=== PATIENT | male | born 1980 | race Caucasian/White ===

== ENCOUNTER 2017-02-05 13:04 | Emergency (ER) | payer SELFPAY ==
[2017-02-05] MEDS ORDERED: SULFAMETHOXAZOLE/TRIMETHOPRIM 800-160 MG TABLET PO ONE (14:36)
[2017-02-05] MEDS ORDERED: CEPHALEXIN 500 MG CAPSULE PO ONE (14:36)
--- NOTE | 2017-02-05 14:41 | ER Document Report ---
ED Extremity Problem, Lower - General Chief Complaint: Leg Pain Stated Complaint: LEG PAIN Time Seen by Provider: 02/05/17 13:59 Mode of Arrival: Ambulatory Information source: Patient Notes: 37-year-old male presents to ED for complaint of rash to his right leg. He has eczema to the right knee. He states that this been there for a long time but it flared up again about 4 5 days ago. He says he scratches that it itches it and then he got a red streak up his right thigh. He said sex same thing happened about the same time last year. He was diagnosed with cellulitis and Bactrim and Keflex cleared it up. He came in he states for the same treatment if possible. TRAVEL OUTSIDE OF THE [place] IN LAST 30 DAYS: No - HPI Patient complains to provider of: Pain Location: Knee - Eczema to right knee redness to right thigh Occurred: Other - Gradually over the last 4 days Onset/Duration: Gradual Quality of pain: Achy Severity: Moderate Pain Level: 4 Recent injury: No Associated symptoms: Other - Eczema to right knee redness to right thigh Exacerbated by: Movement, Walking Relieved by: Other - Antibiotics - Related Data Allergies/Adverse Reactions: No Known Allergies Allergy (Verified 02/05/17 13:09) Past Medical History - General Information source: Patient - Social History Smoking Status: Current Every Day Smoker Cigarette use (# per day): Yes Chew tobacco use (# tins/day): No Smoking Education Provided: Yes Frequency of alcohol use: Rare Drug Abuse: None Occupation: unemployed Lives with: Family Family History: Arthritis, CAD, Hyperlipidemia, Hypertension, Malignancy Patient has suicidal ideation: No Patient has homicidal ideation: No - Past Medical History Cardiac Medical History: Reports: None Pulmonary Medical History: Reports: None EENT Medical History: Reports: None Neurological Medical History: Reports: None Endocrine Medical History: Reports: None Renal/ Medical History: Reports: None Malignancy Medical History: Reports None GI Medical History: Reports: None Musculoskeltal Medical History: Reports Hx Musculoskeletal Trauma Skin Medical History: Reports Hx Eczema Psychiatric Medical History: Reports: Hx Anxiety, Hx Bipolar Disorder, Hx Depression Traumatic Medical History: Reports: Hx Fractures - wrist Infectious Medical History: Reports: None Past Surgical History: Reports: Hx Appendectomy - Immunizations Immunizations up to date: Yes Hx Diphtheria, Pertussis, Tetanus Vaccination: Yes - 2013 Review of Systems - Review of Systems Constitutional: No symptoms reported EENT: Nose discharge, Sinus discharge Cardiovascular: No symptoms reported Respiratory: Cough Gastrointestinal: No symptoms reported Genitourinary: No symptoms reported Male Genitourinary: No symptoms reported Musculoskeletal: No symptoms reported Skin: Change in color - cellulitis, Other - eczema Hematologic/Lymphatic: No symptoms reported Neurological/Psychological: No symptoms reported -: Yes All other systems reviewed and negative Physical Exam - Vital signs Vitals: Temp Pulse Resp BP Pulse Ox 97.7 F 68 20 125/83 100 02/05/17 13:10 02/05/17 13:10 02/05/17 13:10 02/05/17 13:10 02/05/17 13:10 Interpretation: Normal - General General appearance: Appears well, Alert - HEENT Head: Normocephalic, Atraumatic Eyes: Normal Pupils: PERRL Ears: Normal External canal: Normal Tympanic membrane: Normal Sinus: Normal Nasal: Purulent discharge, Swelling Mouth/Lips: Normal Mucous membranes: Normal Pharynx: Post nasal drainage Neck: Normal - Respiratory Respiratory status: No respiratory distress Chest status: Nontender Breath sounds: Nonproductive cough Chest palpation: Normal - Cardiovascular Rhythm: Regular Heart sounds: Normal auscultation Murmur: No - Abdominal Inspection: Normal Distension: No distension Bowel sounds: Normal Tenderness: Nontender Organomegaly: No organomegaly - Back Back: Normal, Nontender - Extremities General upper extremity: Normal inspection, Nontender, Normal color, Normal ROM , Normal temperature General lower extremity: Normal ROM, Normal temperature, Normal weight bearing. No: Anjali's sign Thigh: Tender - cellulitis Knee: Other - eczema to right knee with cellulitis to right thigh - Neurological Neuro grossly intact: Yes Cognition: Normal Orientation: AAOx4 Henderson Coma Scale Eye Opening: Spontaneous Henderson Coma Scale Verbal: Oriented Henderson Coma Scale Motor: Obeys Commands Yash Coma Scale Total: 15 Speech: Normal Motor strength normal: LUE, RUE, LLE, RLE Sensory: Normal - Psychological Associated symptoms: Normal affect, Normal mood - Skin Skin Temperature: Warm Skin Moisture: Dry Skin Color: Normal Location of irregularity: Extremities - eczema to right knee and cellulitis to right thigh Character of irregularity: Patchy, Erythematous Irregularity with: Tenderness, Scaling, Rough texture-sand paper Course - Re-evaluation Re-evalutation: 02/05/17 14:54 Patient was given instructions for care of his upper respiratory infections Tylenol Motrin [id number] antihistamines and decongestants. He was also given instructions for care of his eczema to his right knee include echo for [id number] steroid creams and ibuprofen. He was treated with Keflex and Septra for the cellulitis that he is developed from scratching and messing with his eczema causing a small infection to his thigh. Patient was instructed to return to the ED for any increase in redness swelling or tenderness to his right thigh. - Vital Signs Vital signs: Temp Pulse Resp BP Pulse Ox 97.4 F 77 18 141/90 H 97 02/05/17 15:07 02/05/17 15:07 02/05/17 15:07 02/05/17 15:07 02/05/17 15:07 Discharge - Discharge Clinical Impression: Cellulitis of right thigh Eczema Qualifiers: Eczema type: unspecified Qualified Code(s): L30.9 - Dermatitis, unspecified Condition: Stable Disposition: HOME, SELF-CARE Instructions: Family Physicians / Practices Additional Instructions: Atopic Dematitis (Eczema) You have atopic dermatitis, commonly called eczema. This is a chronic allergic skin condition. It often occurs in families with asthma and hay fever. The skin develops patches of redness, itching and scaling. Eczema often affects the back of the neck, back of the legs, and front of the arms. In children it affects the back of the knees, front of the elbows, and the cheeks. Itching is the main symptom. Eczema can be triggered by dryness, heat, sweating, and detergents or soap. Scratching makes the rash worse. Food or skin allergy can cause eczema. Emotional stress may also be a factor. Symptoms may get better or worse spontaneously. Generally, the treatment consists of: (1) avoid hot-water baths, (2) avoid using soap on your skin, (3) apply a cortisone cream as needed, and (4) use antihistamines for itching. For severe episodes, oral cortisone medication may be required. Call the doctor if you get worse despite treatment, or if signs of infection occur -- such as spreading redness, red streaks, swollen glands, swelling, or fever. CELLULITIS: You have an infection of your skin and underlying soft tissues called cellulitis. This is due to bacteria, which can enter through any break in the skin, or even through an irritated hair follicle. Untreated, cellulitis will usually worsen. Antibiotics are required. Usually, warm packs or warm soaks, and elevation of the infected area are recommended. You should start getting better within 24 to 36 hours. Most infections respond quickly to the right medication. Follow-up care is important, however, to check for abscess (boil) formation, unsuspected foreign body, or resistant infection. If you develop fever, chills, or if the area of infection is becoming rapidly more swollen or painful, call the doctor at once. UPPER RESPIRATORY ILLNESS: You have a viral infection of the respiratory passages -- a "cold." This common infection causes nasal congestion, drainage, and often sore throat and cough. It is highly contagious. The disease usually lasts about 10 to 14 days. There is no "cure" for the viral infection -- it must run its course. If there is a complication, such as bacterial infection in the nose, sinuses, middle ear, or bronchial tubes, antibiotics may be required. The antibiotics won't affect the virus. Drink plenty of fluids. A humidifier may help. An expectorant medication or decongestant may make you more comfortable. Use acetaminophen or ibuprofen for fever or aches. See the doctor if fever persists over two days, if there is any significant worsening of your symptoms, or if you simply fail to improve as expected. DECONGESTANT MEDICATION: A decongestant medicine has been prescribed. Often this medicine is combined in the same tablet with an antihistamine or expectorant. This type of medicine is helpful in treating a bad cold or sinus condition, as well as in treatment of the nasal congestion of hay fever. It is not of much benefit for lung infections. Decongestant medicines are related to stimulants. They can cause an increase in blood pressure and heart rate. Persons with heart disease and high blood pressure should not take decongestants without discussing this with the physician. If you develop palpitations, chest pain, headache, or tremors, stop the medicine and consult your physician. COUGH-SUPPRESSANT & EXPECTORANT MEDICATION: You are to use a cough medication as needed for relief of symptoms. This medicine is a combination of an expectorant (to make the mucous thinner and more easily "coughed up") and a cough suppressant (to reduce the frequency of coughing). The cough-suppressant medicine is related to narcotics. You may experience mild nausea and sleepiness. Some patients who are very sensitive to narcotics may have stomach pain from this medicine. Taking the medicine with food reduces these side effects. Do not drive or work with machinery until you know how this medicine affects you. The expectorant should have no side effects. Iodine-containing expectorants (such as organidin) should not be taken by persons with active thyroid disease unless approved by your doctor. Call the doctor if you develop shortness of breath, hives, rash, itching, lightheadedness, or severe nausea and vomiting. USE OF ACETAMINOPHEN (Tylenol): Acetaminophen may be taken for pain relief or fever control. It's much safer than aspirin, offering a wider range of "safe" dosages. It is safe during . Some brand names are Tylenol, Panadol, Datril, Anacin 3, Tempra, and Liquiprin. Acetaminophen can be repeated every four hours. The following are maximum recommended dosages: >89 pounds or adults 650 mg to 900 mg Acetaminophen can be repeated every four hours. Maximum dose not to exceed 4000 mg a day. SMOKING: If you smoke, you should stop smoking. The tar and chemicals in cigarette smoke are harmful. Smoking has been shown to cause: emphysema chronic bronchitis lung cancer mouth and throat cancer stomach and pancreas cancer premature aging defects In addition, smoking increases ear and lung infections in children of smokers. TRIMETHOPRIM-SULFA: You have been given a prescription for trimethoprim-sulfa (TMS, Septra, Bactrim). This is a combination antibiotic of the sulfa class, often used for urinary tract infections, middle ear infections, bronchitis, shigella intestinal infection, and Pneumocystis pneumonia. TMS is usually well-tolerated. Occasional side effects include nausea and decreased appetite. Septra is not recommended for infants less than two months of age. Do not take this medication if you have experienced severe side effects or allergy to sulfa medicine. You should stop this medicine at once and contact your physician if you develop any rash, joint pain, shortness of breath, bruising, or jaundice ( yellow color in the skin), or if you develop any other new or unusual symptoms. Cephalexin The antibiotic you've been prescribed is a member of the cephalosporin class. This type of antibiotic covers a wide variety of infections, including those of the skin, lungs, and urinary tract. It's useful for staph infections. This antibiotic is slightly similar to the penicillin family. In rare cases , a person who is allergic to penicillin will also be allergic to this medication. If you have had a severe allergic reaction to penicillin, and have not taken this antibiotic since that time, notify your doctor. Antibiotics which cover many germs ("broad spectrum" antibiotics) are more likely to cause diarrhea or "yeast" infections. Women prone to vaginal yeast problems may suffer an attack after taking this antibiotic. In infants, oral thrush (white spots "stuck" on the cheek) or yeast diaper rash may result. See your doctor if these problems occur. Call at once if you develop itching, hives , shortness of breath, or lightheadedness. FOLLOW-UP CARE: If you have been referred to a physician for follow-up care, call the physician s office for an appointment as you were instructed or within the next two days. If you experience worsening or a significant change in your symptoms, notify the physician immediately or return to the Emergency Department at any time for re-evaluation. Prescriptions: Cephalexin Monohydrate [Keflex 500 mg Capsule] 500 mg PO Q6H 5 Days capsule Sulfamethoxazole/Trimethoprim [Septra-Ds 800-160 mg Tablet] 1 tab PO BID #14 tablet
[2017-02-05 15:08] VITALS: BP 141/90
== END 2017-02-05 15:08 | disposition home or self-care (01) ==
LOC: ER 13:04
DX: L03.115 Cellulitis of right lower limb (principal); L30.9 Dermatitis, unspecified; M79.604 Pain in right leg; F17.210 Nicotine dependence, cigarettes, uncomplicated
CPT/HCPCS: 99283

== ENCOUNTER 2017-08-10 06:47 | Observation (INO) | payer SELFPAY ==
[2017-08-10] MEDS ORDERED: MORPHINE SULFATE 10 MG/ML INJ IV ONE (07:16)
[2017-08-10] MEDS ORDERED: ONDANSETRON HCL INJ/PF 4 MG/2 ML SDV IV ONE (07:16)
--- NOTE | 2017-08-10 07:26 | ER Document Report ---
ED GI/ - General Chief Complaint: Abdominal Pain Stated Complaint: ABDOMINAL PAIN Time Seen by Provider: 08/10/17 07:07 Mode of Arrival: Ambulatory Information source: Patient TRAVEL OUTSIDE OF THE [place] IN LAST 30 DAYS: No - HPI Patient complains to provider of: Abdominal pain Notes: 08/10/17 07:19 Patient is here with complaints of abdominal pain. He states that around midnight he developed some epigastric/right upper quadrant abdominal pain. Occasionally the pain would radiate up into the right side of his chest. He denies any chest pain currently. At this time is complaining of pain in the epigastric and right upper quadrant. He denies any fevers. He denies any shortness of breath. He does have nausea and has vomited approximately 6 times since the start of his pain. He denies any diarrhea. He denies any rash or injury. He has had prior appendectomy, but still has his gallbladder. He denies any history of pancreatitis. He denies alcohol use. He denies any dysuria or hematuria. No rash. No numbness, tingling, weakness. He is a smoker, denies drug use. Has a history of high cholesterol. No diabetes, high cholesterol, heart disease at a young age, personal heart disease. He denies any recent long trips or surgeries, leg pain or leg swelling, history of DVT or PE, cancer, hemoptysis. Nothing in particular makes his pain better or worse. The pain has been constant, but the intensity has waxed and waned. - Related Data Allergies/Adverse Reactions: No Known Allergies Allergy (Verified 02/05/17 13:09) Past Medical History - Social History Smoking Status: Current Every Day Smoker Family History: Arthritis, CAD, Hyperlipidemia, Hypertension, Malignancy Renal/ Medical History: Denies: Hx Peritoneal Dialysis Musculoskeltal Medical History: Reports Hx Musculoskeletal Trauma Skin Medical History: Reports Hx Eczema, Denies Hx MRSA Psychiatric Medical History: Reports: Hx Anxiety, Hx Bipolar Disorder, Hx Depression Traumatic Medical History: Reports: Hx Fractures - wrist Past Surgical History: Reports: Hx Appendectomy - Immunizations Immunizations up to date: Yes Hx Diphtheria, Pertussis, Tetanus Vaccination: Yes - 2013 Review of Systems - Review of Systems -: Yes All other systems reviewed and negative Physical Exam - Vital signs Vitals: Temp Pulse Resp BP Pulse Ox 98.6 F 63 16 119/86 H 96 08/10/17 06:57 08/10/17 06:57 08/10/17 06:57 08/10/17 06:57 08/10/17 06:57 - Notes Notes: GENERAL: alert, cooperative, nontoxic, no distress. HEAD: normocephalic, atraumatic EYES: conjunctiva pink without discharge, no external redness or swelling. EARS: no external swelling, no external redness NOSE: atraumatic, no external swelling MOUTH/THROAT: mucous membranes moist and pink, posterior pharynx without erythema, swelling, exudate. No trismus or drooling. NECK: soft, supple, full range of motion, no meningismus. CHEST: no distress, lungs clear and equal throughout. No wheezing, rales, rhonchi. CARDIAC: regular rate and rhythm, no murmur, normal capillary refill, normal pulses. No peripheral edema noted. ABDOMEN: Soft, tenderness to palpation of epigastric and right upper quadrant. Mild voluntary guarding. Positive Smiley sign. No left-sided or lower abdominal tenderness on exam. No masses. Obese abdomen. No pulsatile mass. BACK: full range of motion, no CVA tenderness. EXTREMITIES: full range of motion of all extremities. No redness, no swelling. NEURO: alert and oriented x 3, no focal deficits, full range of motion of all extremities. PYSCH: appropriate mood, affect. Patient is cooperative. SKIN: pink, warm, dry, no rash. Course - Re-evaluation Re-evalutation: 08/10/17 07:26 PERC RULE: 0 criteria No need for further workup, as <2% chance of PE. If no criteria are positive and clinicians pre-test probability is <15%, PERC Rule criteria are satisfied. WELL CRITERIA FOR PE: 0.0 points Low risk group: 1.3% chance of PE in an ED population. Another study assigned scores 4 as PE Unlikely and had a 3% incidence of PE. HEART SCORE: 1 points Low Score (0-3 points) Risk of MACE of 0.9-1.7%. 08/10/17 09:56 Labs are unremarkable. Chest x-ray is negative. Ultrasound shows multiple gallstones with gallbladder wall thickening. Common bile duct is normal. I discussed the case with the surgeon salon receptionist Dr. Amaro, he will come the emergency department to evaluate the patient. 08/10/17 11:47 Patient is here with complaints of right upper quadrant pain. He was tender on exam. Lab work is all unremarkable. Ultrasound shows multiple gallstones with gallbladder wall thickening. The patient was seen and evaluated by surgery and will be admitted to Dr. Amaro's service for cholecystectomy. Patient's pain seemed to be more abdominal than chest. He has no PE risk factors and is PERC rule negative as well as Wells criteria negative for PE. Patient has a heart score of 1, his pain seems very atypical for ACS. EKG, chest x-ray, troponin are negative. The patient's had constant pain since last night. His gallbladder is most likely source of the pain he has been experiencing. - Vital Signs Vital signs: Temp Pulse Resp BP Pulse Ox 98.6 F 63 11 L 116/82 98 08/10/17 06:57 08/10/17 06:57 08/10/17 11:01 08/10/17 11:01 08/10/17 11:01 - Laboratory Result Diagrams: 08/10/17 07:30 08/10/17 07:30 Laboratory results interpreted by me: 08/10/17 07:30 Sodium 146.5 H Chloride 108 H - EKG Interpretation by Or EKG shows normal: Sinus rhythm, [place], Intervals, QRS Complexes, ST-T Waves Rate: Normal Additional EKG results interpreted by ny: 08/10/17 07:23 Voltage change in V2 only compared to prior EKG. No other obvious acute abnormalities or ischemic changes. Discharge - Discharge Clinical Impression: Cholecystitis, Gall stones Condition: Stable Disposition: ADMITTED OBSERVATION Admitting Provider: Surgicalist - dr amaro Unit Admitted: Surgical Floor Referrals: SHANTHI DE LEON MD [Primary Care Provider] - Follow up as needed
[2017-08-10] MEDS ORDERED: NEOSTIGMINE METHYLSULFATE 10 MG/10 ML VIAL ONE (07:39)
[2017-08-10] MEDS ORDERED: SUCCINYLCHOLINE CHLORIDE INJ 200 MG/10 ML VIAL ONE (07:39)
[2017-08-10] MEDS ORDERED: VECURONIUM BROMIDE INJ 10 MG VIAL IV ONE (07:39)
[2017-08-10] MEDS ORDERED: GLYCOPYRROLATE INJ 0.4 MG/2 ML VIAL ONE (07:39)
[2017-08-10 07:50] LABS: ABSOLUTE EOSINOPHILS # (AUTO) 0.2 10^3/uL (0.0-0.6); ABSOLUTE LYMPHOCYTES (AUTO) 1.6 10^3/uL (0.5-4.7); ABSOLUTE MONOCYTES (AUTO) 0.6 10^3/uL (0.1-1.4); ABSOLUTE NEUT (AUTO) 4.1 10^3/uL (1.7-8.2); BASOPHILS % (AUTO) 0.6 % (0-2); EOSINOPHILS % (AUTO) 3.7 % (0-6); HEMATOCRIT 45.1 % (37.9-51.0); HEMOGLOBIN 15.7 g/dL (13.5-17.0); LYMPHOCYTES % (AUTO) 24.8 % (13-45); MEAN CORPUSCULAR HGB CONC 34.8 g/dL (32.0-36.0); MEAN CORPUSCULAR VOLUME 89 fl (80-97); MONOCYTES % (AUTO) 8.5 % (3-13); PLATELET COUNT 211 10^3/uL (150-450); RED BLOOD COUNT 5.06 10^6/uL (4.35-5.55); RED CELL DISTRIBUTION WIDTH 13.4 % (11.5-14.0); SEGMENTED NEUTROPHILS % (AUTO) 62.4 % (42-78); TOTAL CELLS COUNTED % (AUTO) 100 %; WHITE BLOOD COUNT 6.5 10^3/uL (4.0-10.5)
--- NOTE | 2017-08-10 07:53 | EKG REPORT ---
SEVERITY:- NORMAL ECG - SINUS RHYTHM : Confirmed by: Jose Taveras MD 10-Aug-2017 07:52:50
[2017-08-10 07:55] LABS: AMORPHOUS SEDIMENT,URINE TRACE /HPF; APPEARANCE,URINE TURBID; BILIRUBIN,URINE NEGATIVE (NEGATIVE); GLUCOSE, URINE NEGATIVE (NEGATIVE); KETONES,URINE NEGATIVE (NEGATIVE); LEUKOCYTE ESTERASE,URINE NEGATIVE (NEGATIVE); NITRITE,URINE NEGATIVE (NEGATIVE); PROTEIN,URINE NEGATIVE (NEGATIVE); URINE SPECIFIC GRAVITY 1.024; UROBILINOGEN,URINE NEGATIVE mg/dL (<2.0)
[2017-08-10 08:01] LABS: COLOR,URINE YELLOW
[2017-08-10 08:07] LABS: ALANINE AMINOTRANSFERASE 35 U/L (21-72); ALBUMIN 4.4 g/dL (3.5-5.0); ALKALINE PHOSPHATASE 71 U/L (38-126); ANION GAP 13 (5-19); ASPARTATE AMINO TRANSFERASE 23 U/L (17-59); BILIRUBIN,DIRECT 0.3 mg/dL (0.0-0.4); BILIRUBIN,TOTAL 0.3 mg/dL (0.2-1.3); BLOOD UREA NITROGEN 10 mg/dL (7-20); CALCIUM 9.9 mg/dL (8.4-10.2); CARBON DIOXIDE 26 mmol/L (22-30); CHLORIDE 108 mmol/L (98-107); GLUCOSE 97 mg/dL (75-110); LIPASE 77.5 U/L (23-300); POTASSIUM 4.3 mmol/L (3.6-5.0); SODIUM 146.5 mmol/L (137-145); TOTAL PROTEIN 7.2 g/dL (6.3-8.2)
[2017-08-10] MEDS ORDERED: HYDROMORPHONE HCL INJ/PF 2 MG/ML AMPULE IV ONE ×2 (08:10→12:30)
--- NOTE | 2017-08-10 08:15 | RADIOLOGY REPORT (SQ) ---
EXAM DESCRIPTION: CHEST 2 VIEWS COMPLETED DATE/TIME: 08/10/2017 7:45 am REASON FOR STUDY: ruq abdo/cp COMPARISON: None. EXAM PARAMETERS: NUMBER OF VIEWS: two views TECHNIQUE: Digital Frontal and Lateral radiographic views of the chest acquired. RADIATION DOSE: NA LIMITATIONS: none FINDINGS: LUNGS AND PLEURA: No opacities, masses or pneumothorax. No pleural effusion. MEDIASTINUM AND HILAR STRUCTURES: No masses or contour abnormalities. HEART AND VASCULAR STRUCTURES: Heart normal size. No evidence for failure. BONES: No acute findings. HARDWARE: None in the chest. OTHER: No other significant finding. IMPRESSION: NO ACUTE RADIOGRAPHIC FINDING IN THE CHEST. TECHNICAL DOCUMENTATION: JOB ID: [id number] [employer]- All Rights Reserved Reading location - IP/workstation name: [email or web address]
--- NOTE | 2017-08-10 09:22 | RADIOLOGY REPORT (SQ) ---
EXAM DESCRIPTION: U/S ABDOMEN LIMITED W/O DOP COMPLETED DATE/TIME: 08/10/2017 9:12 am REASON FOR STUDY: ruq abdo/cp COMPARISON: None. TECHNIQUE: Dynamic and static grayscale images acquired of the abdomen and recorded on PACS. Additio nal selected color Doppler and spectral images recorded. LIMITATIONS: None. FINDINGS: PANCREAS: The pancreas was not visualized due to overlying bowel gas. LIVER: Fatty liver. The liver measures 18.7 cm in length, hepatomegaly. LIVER VASCULATURE: Normal directional flow of the main portal vein and hepatic veins. GALLBLADDER: Gallstones. The gallbladder wall measures 4.0 mm, diffuse gallbladder wall thickening. No pericholecystic fluid. ULTRASOUND-DETECTED DIA'S SIGN: Negative. INTRAHEPATIC DUCTS AND COMMON DUCT: CBD measures 5.0 mm in diameter, normal. The intrahepatic ducts normal caliber. No filling defects. INFERIOR VENA CAVA: Normal flow. AORTA: No aneurysm. RIGHT KIDNEY: The right kidney measures 11.8 cm in length, normal size. Normal echogenicity. No jimmy d or suspicious masses. No hydronephrosis. No calcifications. PERITONEAL AND RIGHT PLEURAL SPACE: No ascites or effusions. OTHER: No other significant findings. IMPRESSION: 1 Gallstones. Diffuse gallbladder wall thickening. 2. No evidence of biliary obstruction. 3 Fatty liver. Hepatomegaly. 4 The pancreas was not visualized due to overlying bowel gas. TECHNICAL DOCUMENTATION: JOB ID: [id number] [employer]- All Rights Reserved Reading location - IP/workstation name: [email or web address]
--- NOTE | 2017-08-10 11:00 | PDOC H&P ---
History of Present Illness Admission Date/PCP: SHANTHI DE LEON MD Patient complains of: Abdominal pain History of Present Illness: ALEXANDREA CHAND is a 37 year old male presenting with several week history of intermittent right upper quadrant abdominal pain, usually associated with food. Patient has had associated nausea and vomiting but no fevers or chills and no jaundice. Patient had a particularly bad episode of this pain last night that persisted and he subsequently came in to the emergency room. His only prior past medical history is gastroesophageal reflux disease and a laparoscopic appendectomy in the remote past. Past Medical History Cardiac Medical History: Reports: Hyperlipidema GI Medical History: Reports: Gastroesophageal Reflux Disease Skin Medical History: Reports: Eczema Psychiatric Medical History: Reports: Bipolar Disorder, Depression Past Surgical History Past Surgical History: Reports: Appendectomy Social History Smoking Status: Current Every Day Smoker Frequency of Alcohol Use: Rare Family History Family History: Arthritis, CAD, Hyperlipidemia, Hypertension, Malignancy Parental Family History Reviewed: No Children Family History Reviewed: No Sibling(s) Family History Reviewed.: No Medication/Allergy Home Medications: Cephalexin Monohydrate [Keflex 500 mg Capsule] 500 mg PO Q6H 5 Days capsule Sulfamethoxazole/Trimethoprim [Septra-Ds 800-160 mg Tablet] 1 tab PO BID #14 tablet 02/05/17 Allergies/Adverse Reactions: No Known Allergies Allergy (Verified 02/05/17 13:09) Physical Exam Vital Signs: Temp Pulse Resp BP Pulse Ox 98.6 F 63 24 H 128/80 H 96 08/10/17 06:57 08/10/17 06:57 08/10/17 08:11 08/10/17 08:11 08/10/17 08:11 Intake & Output 08/09/17 08/10/17 08/11/17 06:59 06:59 06:59 Weight 129.727 kg General appearance: PRESENT: no acute distress, cooperative Eye exam: PRESENT: conjunctiva pink Neck exam: PRESENT: other - Supple with no tenderness. Respiratory exam: PRESENT: clear to auscultation yuri Cardiovascular exam: PRESENT: RRR GI/Abdominal exam: PRESENT: other - Soft, obese, minimal right upper quadrant abdominal tenderness. No peritoneal signs Extremities exam: PRESENT: other - No swelling and no tenderness Neurological exam: PRESENT: alert, awake Psychiatric exam: PRESENT: appropriate affect Skin exam: PRESENT: warm Results Laboratory Results: 08/10/17 07:30 08/10/17 07:30 08/10/17 08/10/17 08/10/17 07:30 07:30 07:30 WBC 6.5 RBC 5.06 Hgb 15.7 Hct 45.1 MCV 89 MCH 31.0 MCHC 34.8 RDW 13.4 Plt Count 211 Seg Neutrophils % 62.4 Lymphocytes % 24.8 Monocytes % 8.5 Eosinophils % 3.7 Basophils % 0.6 Absolute Neutrophils 4.1 Absolute Lymphocytes 1.6 Absolute Monocytes 0.6 Absolute Eosinophils 0.2 Absolute Basophils 0.0 Sodium 146.5 H Potassium 4.3 Chloride 108 H Carbon Dioxide 26 Anion Gap 13 BUN 10 Creatinine 0.73 Est GFR ( Amer) > 60 Est GFR (Non-Af Amer) > 60 Glucose 97 Calcium 9.9 Total Bilirubin 0.3 AST 23 ALT 35 Alkaline Phosphatase 71 Total Protein 7.2 Albumin 4.4 Lipase 77.5 Urine Color YELLOW Urine Appearance TURBID Urine pH 8.0 Ur Specific Wheeler 1.024 Urine Protein NEGATIVE Urine Glucose (UA) NEGATIVE Urine Ketones NEGATIVE Urine Blood NEGATIVE Urine Nitrite NEGATIVE Ur Leukocyte Esterase NEGATIVE Urine WBC (Auto) 1 08/10/17 07:30 Troponin I < 0.012 Impressions: Abdomen Ultrasound 08/10/17 07:16 IMPRESSION: 1 Gallstones. Diffuse gallbladder wall thickening. 2. No evidence of biliary obstruction. 3 Fatty liver. Hepatomegaly. 4 The pancreas was not visualized due to overlying bowel gas. Chest X-Ray 08/10/17 07:16 IMPRESSION: NO ACUTE RADIOGRAPHIC FINDING IN THE CHEST. Assessment & Plan - Diagnosis (1) Acute cholecystitis due to biliary calculus Is this a current diagnosis for this admission?: Yes Plan: Recommend laparoscopic cholecystectomy. I have discussed with the patient the risk and benefits of the surgery including risk of bile duct injury, intestinal injury, bleeding, infection, postcholecystectomy diarrhea, and possibility of conversion to an open procedure. Patient's body habitus, enlarged liver and gallbladder wall thickening will make the procedure technically more difficult. Patient is reluctant to undergo surgery despite my recommendation. He will consider and will decide. In the meantime we will plan to admit the patient place him on IV antibiotics. We will keep him n.p.o.
[2017-08-10] MEDS ORDERED: NICOTINE 21 MG/24 HR PATCH.TD24 TD ONE (11:49)
[2017-08-10] MEDS ORDERED: AMPICILLIN SODIUM/SULBACTAM NA 3 GM in NORMAL SALINE 100 ML IV ONE (13:00)
[2017-08-10] MEDS: DEXTROSE 5%-1/2 NORMAL SALINE 1,000 ML IV PRN ×2 (13:05→18:36)
[2017-08-10] MEDS ORDERED: BUPIVACAINE HCL 0.25 % INJ/PF (2.5 MG/1 ML) 30 ML VIAL ONE (14:51)
[2017-08-10] MEDS ORDERED: LIDOCAINE 2% INJ-PF (20 MG/ML) 10 ML AMPUL ONE (14:57)
[2017-08-10] MEDS ORDERED: FENTANYL CITRATE INJ/PF 100 MCG/2 ML AMPUL ONE ×2 (14:57→14:58)
[2017-08-10] MEDS ORDERED: ONDANSETRON HCL INJ/PF 4 MG/2 ML SDV ONE (14:58)
[2017-08-10] MEDS ORDERED: MIDAZOLAM 2 MG/2 ML INJ ONE (14:58)
[2017-08-10] MEDS ORDERED: DEXAMETHASONE SOD PHOSPHATE INJ 4 MG/1 ML VIAL ONE (14:58)
[2017-08-10] MEDS ORDERED: PROPOFOL INJ 200 MG/20 ML VIAL IV ONE (14:59)
[2017-08-10] MEDS ORDERED: ACETAMINOPHEN 100 ML IV ONE ×2 (14:59)
[2017-08-10] MEDS ORDERED: DIPHENHYDRAMINE HCL 50 MG/ML VIAL IV PRN (16:37)
[2017-08-10] MEDS ORDERED: ONDANSETRON HCL INJ/PF 4 MG/2 ML SDV IV PRN ×2 (16:37→17:03)
[2017-08-10] MEDS ORDERED: MORPHINE SULFATE 10 MG/ML INJ IV PRN ×2 (16:37→17:03)
[2017-08-10] MEDS ORDERED: MEPERIDINE HCL/PF INJ 25 MG/1 ML DISP.SYRIN IV PRN (16:37)
[2017-08-10] MEDS ORDERED: FENTANYL CITRATE INJ/PF 100 MCG/2 ML AMPUL IV PRN ×3 (16:37)
[2017-08-10] MEDS ORDERED: PROMETHAZINE HCL INJ 25 MG/1 ML VIAL IV PRN ×2 (16:37)
--- NOTE | 2017-08-10 17:03 | Operative Report ---
Operative Report DATE OF SURGERY: 08/10/17 PREOPERATIVE DIAGNOSIS: Acute cholecystitis POSTOPERATIVE DIAGNOSIS: Acute cholecystitis OPERATION: Laparoscopic cholecystectomy SURGEON: SONIA CAROLINA ANESTHESIA: GA TISSUE REMOVED OR ALTERED: gAll bladder COMPLICATIONS: None ESTIMATED BLOOD LOSS: Minimal INTRAOPERATIVE FINDINGS: Fat encased gallbladder with thickened gallbladder wall with edema and gallstones PROCEDURE: Informed consent was obtained. Patient was brought to the operating room placed operating table in supine position. After satisfactory induction of general anesthesia, patient's abdomen was prepped and draped in usual sterile fashion. A supraumbilical midline incision was made and dissection carried down to the fascia the peritoneal cavity entered without difficulty. Thompson trocar was inserted. Pneumoperitoneum produced good patient toleration. 5 mm trocar was placed in the subxiphoid location.Two 5 mm trochars were placed in the right subcostal location. The liver appeared slightly enlarged but otherwise appeared normal. The gallbladder was grasped and retracted cephalad over the dome of the liver. The gallbladder was fat encased and the wall was thickened and edematous. The infundibulum of the gallbladder was grasped retracted laterally and inferiorly thus exposing calot's triangle. The cystic duct gallbladder junction was clearly identified and the cystic duct was clipped and divided. There was some lymphatic tissue overlying the cystic artery which was clipped and divided prior to clipping and dividing the cystic artery. The gallbladder was taken off the gallbladder bed using the hook electrocautery technique. The gallbladder was removed with an Endobag through the Thompson trocar site fascial defect. Hemostasis appeared excellent. The operative field was lightly irrigated and irrigant aspirated out. All trochars were removed under the direct vision a laparoscope to ensure hemostasis. The Thompson trocar site fascial defect was closed with interrupted Vicryl sutures. All skin incisions were closed with subcuticular interrupted Monocryl sutures. Marcaine was injected at the port sites. Patient tolerated procedure well no apparent complications and was taken to the recovery area in stable condition.
[2017-08-10] MEDS: PROMETHAZINE HCL INJ 25 MG/1 ML VIAL ONE ×2 (17:09→17:30)
[2017-08-10] MEDS: FENTANYL CITRATE INJ/PF 100 MCG/2 ML AMPUL ONE ×2 (17:10→17:15)
[2017-08-10] MEDS ORDERED: MORPHINE SULFATE 10 MG/ML INJ ONE (18:20)
[2017-08-10] MEDS: AMPICILLIN SODIUM/SULBACTAM NA 3 GM in NORMAL SALINE 100 ML IV SCH ×2 (18:51→23:42)
[2017-08-10] MEDS: KETOROLAC TROMETHAMINE INJ/PF 30 MG/1 ML SDV IV PRN (22:01)
[2017-08-11] MEDS: AMPICILLIN SODIUM/SULBACTAM NA 3 GM in NORMAL SALINE 100 ML IV SCH (05:56)
[2017-08-11] MEDS: DEXTROSE 5%-1/2 NORMAL SALINE 1,000 ML IV PRN (05:56)
--- NOTE | 2017-08-11 10:14 | PDOC PROGRESS REPORT ---
Subjective Progress Note for:: 08/11/17 Subjective:: Feels much better. Preoperative abdominal pain is resolved. Tolerating liquid diet. Reason For Visit: ACUTE CHOLECYSTITIS Physical Exam Vital Signs: Temp Pulse Resp BP Pulse Ox 98.3 F 78 22 H 129/79 H 95 08/11/17 07:58 08/11/17 07:58 08/11/17 07:58 08/11/17 07:58 08/11/17 07:58 Intake & Output 08/10/17 08/11/17 08/12/17 06:59 06:59 06:59 Intake Total 1150 Output Total 1330 Balance -180 Weight 117 kg General appearance: PRESENT: no acute distress, cooperative Respiratory exam: PRESENT: clear to auscultation yuri Cardiovascular exam: PRESENT: RRR GI/Abdominal exam: PRESENT: other - Soft, nondistended, minimal tenderness. Wound with no erythema. Extremities exam: PRESENT: other - No swelling and no tenderness Results Impressions: Abdomen Ultrasound 08/10/17 07:16 IMPRESSION: 1 Gallstones. Diffuse gallbladder wall thickening. 2. No evidence of biliary obstruction. 3 Fatty liver. Hepatomegaly. 4 The pancreas was not visualized due to overlying bowel gas. Chest X-Ray 08/10/17 07:16 IMPRESSION: NO ACUTE RADIOGRAPHIC FINDING IN THE CHEST. Assessment & Plan - Diagnosis (1) Acute cholecystitis due to biliary calculus Is this a current diagnosis for this admission?: Yes Plan: Status post laparoscopic cholecystectomy. Patient looks good. Will discharge patient home.
--- NOTE | 2017-08-11 10:35 | DISCHARGE SUMMARY E ---
Discharge Summary NAME: ALEXANDREA CHAND : 1980 AGE: 37Y ADMITTED: 08/10/2017 DISCHARGED: 08/11/2017 DISCHARGE DIAGNOSIS: ACUTE CHOLECYSTITIS WITH CHOLELITHIASIS. PROCEDURE PERFORMED: Laparoscopic cholecystectomy performed by Dr. Sarah Carolina on 08/10/2017. HOSPITAL COURSE: Patient underwent the above-mentioned surgery. He did well postoperatively. He was feeling much better and was tolerating a liquid diet well at the time of discharge. The patient was finally discharged to home in good condition. He will follow with [facility] in 2 weeks. He is encouraged to stay active at home but avoid strenuous activity. He may return to work in 1 week. He may shower tomorrow. He may resume a regular diet but avoid greasy foods for a couple of weeks. DISCHARGE MEDICATIONS: Vicodin 1 p.o. every 4 hours p.r.n. pain. DICTATING PHYSICIAN: SARAH CAROLINA M.D. [id number] PHY#: [id number] ID: [id number] JOB#: [id number] ACCT: [id number] cc:SARAH CAROLINA M.D. >
[2017-08-11 10:54] VITALS: BP 113/77
[2017-08-11] MEDS: KETOROLAC TROMETHAMINE INJ/PF 30 MG/1 ML SDV IV PRN (11:17)
== END 2017-08-11 11:45 | disposition home or self-care (01) ==
LOC: ER 06:47 → EH 11:42 → 2N 18:09
PROVIDERS: ADMIT Surgery; ATTEND Surgery
PROC: 0FT44ZZ Resection of Gallbladder, Percutaneous Endoscopic Approach (ICD-10-PCS; principal; 2017-08-10 15:30)
DX: K80.10 Calculus of gallbladder with chronic cholecystitis without obstruction (principal); F17.200 Nicotine dependence, unspecified, uncomplicated; Z90.49 Acquired absence of other specified parts of digestive tract; E66.9 Obesity, unspecified; R16.0 Hepatomegaly, not elsewhere classified; K21.9 Gastro-esophageal reflux disease without esophagitis; Z68.35 Body mass index [BMI] 35.0-35.9, adult
CPT/HCPCS: 93005; 36415; 87040; 83690; 85025; 80053; 81001; 84484; 88304 ×2; 71046; 76705; 93010; 47562; G0378 ×3; J2250; J1100; J3010; J0295 ×2; J3490 ×3; J1885 ×2; J2270; J1170; J2550; J0330; J2405; J2704; J0131; 790

== ENCOUNTER 2018-06-25 18:57 | Emergency (ER) | payer SELFPAY ==
[2018-06-25] MEDS ORDERED: SULFAMETHOXAZOLE/TRIMETHOPRIM 800-160 MG TABLET PO ONE (20:23)
[2018-06-25] MEDS ORDERED: CEPHALEXIN 500 MG CAPSULE PO ONE (20:23)
[2018-06-25] MEDS ORDERED: HYDROCODONE/ACETAMINOPHEN 5-325 MG (6 TAB/ER DISP) PO PRN (20:23)
[2018-06-25] MEDS ORDERED: ONDANSETRON 4 MG TAB.RAPDIS PO ONE (20:23)
--- NOTE | 2018-06-25 20:28 | ER Document Report ---
HPI - HPI Patient complains to provider of: Right knee pain Time Seen by Provider: 06/25/18 20:07 Onset/Duration: Persistent Quality of pain: Achy Pain Level: 2 Context: Patient states that he stepped in a hole about 2 weeks ago and has had persistent right knee pain since then. Patient does have psoriasis over his right knee And that he will frequently scratch this area. Patient states that he started to develop some redness yesterday to the knee. Patient denies any fever. Patient states that he has had cellulitis in the past and suspects the same today. Associated Symptoms: Other - Right knee pain. denies: Fever Exacerbated by: Movement Relieved by: Denies Similar symptoms previously: Yes Recently seen / treated by doctor: No - ROS ROS below otherwise negative: Yes Systems Reviewed and Negative: Yes All other systems reviewed and negative - CONSTITUTIONAL Constitutional: DENIES: Fever, Chills - NEURO Neurology: DENIES: Weakness - GASTROINTESTINAL Gastrointestinal: DENIES: Nausea - MUSCULOSKELETAL Musculoskeletal: REPORTS: Extremity pain - Knee pain. DENIES: Swelling - DERM Skin Color: Erythema Skin Problems: Rash - Psoriasis Past Medical History - General Information source: Patient - Social History Smoking Status: Current Every Day Smoker Chew tobacco use (# tins/day): No Smoking Education Provided: Yes Frequency of alcohol use: None Drug Abuse: None Occupation: Remodeling Lives with: Family Family History: Arthritis, CAD, Hyperlipidemia, Hypertension, Malignancy Patient has suicidal ideation: No Patient has homicidal ideation: No - Past Medical History Cardiac Medical History: Reports: Hx Hypercholesterolemia Renal/ Medical History: Denies: Hx Peritoneal Dialysis GI Medical History: Reports: Hx Gastroesophageal Reflux Disease Musculoskeletal Medical History: Reports Hx Musculoskeletal Trauma Skin Medical History: Denies Hx MRSA, Reports Hx Psoriasis Psychiatric Medical History: Reports: Hx Anxiety, Hx Bipolar Disorder, Hx Depression Traumatic Medical History: Reports: Hx Fractures - wrist Past Surgical History: Reports: Hx Appendectomy, Hx Cholecystectomy - 2018 - Immunizations Immunizations up to date: Yes Hx Diphtheria, Pertussis, Tetanus Vaccination: Yes - 2013 Vertical Provider Document - CONSTITUTIONAL Agree With Documented VS: Yes Exam Limitations: No Limitations General Appearance: WD/WN, No Apparent Distress - INFECTION CONTROL TRAVEL OUTSIDE OF THE [place] IN LAST 30 DAYS: No - HEENT HEENT: Atraumatic, Normocephalic - NECK Neck: Normal Inspection - RESPIRATORY Respiratory: Breath Sounds Normal, No Respiratory Distress - CARDIOVASCULAR Cardiovascular: Regular Rate, Regular Rhythm Pulses: Normal: Posterior tibial - MUSCULOSKELETAL/EXTREMETIES Musculoskeletal/Extremeties: MAEW, FROM, Tender - Right knee joint tenderness with range of motion. No laxity with varus or valgus maneuvers. Patellar tendon intact. Patient with psoriasis-like plaque overlying the right knee joint. Patient with area of erythema extending medially from this area. - NEURO Level of Consciousness: Awake, Alert, Appropriate Motor/Sensory: No Motor Deficit - DERM Integumentary: Warm, Dry, Rash - Psoriasis plaque over right knee, erythema extending medially from plaque Course - Re-evaluation Re-evalutation: 06/25/18 20:25 Patient with erythema worrisome for cellulitis. Patient does acknowledge that he has been scratching at the psoriasis lesion. Suspect superficial cellulitis, no concern for septic arthritis at this time. Patient does report stepping in a hole several weeks ago and has had persistent pain to the right knee joint since then. - Vital Signs Vital signs: Temp Pulse Resp BP Pulse Ox 98.9 F 80 18 139/89 H 98 06/25/18 19:09 06/25/18 19:09 06/25/18 19:09 06/25/18 19:09 06/25/18 19:09 Procedures - Immobilization Right Knee Pre-Proc Neuro Vasc Exam: Normal Immobilizer type: Knee immobilizer Performed by: PCT Post-Proc Neuro Vasc Exam: Normal Alignment checked and good: Yes Discharge - Discharge Clinical Impression: Cellulitis Qualifiers: Site of cellulitis: extremity Site of cellulitis of extremity: lower extremity Laterality: right Qualified Code(s): L03.115 - Cellulitis of right lower limb Right knee sprain Qualifiers: Encounter type: initial encounter Involved ligament of knee: unspecified ligament Qualified Code(s): S83.91XA - Sprain of unspecified site of right knee, initial encounter Condition: Stable Disposition: HOME, SELF-CARE Instructions: Cellulitis ([facility]), Cephalexin ([facility]), Use of Crutches ([facility]), Knee Immobilizing Splint ([facility]), Oral Narcotic Medication ([facility]), Sprained Knee ([facility]), Trimethoprim-Sulfa ([facility]) Additional Instructions: Return immediately for any new or worsening symptoms Followup with your primary care provider, call tomorrow to make a followup appointment Weightbearing as tolerated Follow-up with orthopedics for any persistent pain or problems Prescriptions: Cephalexin Monohydrate [Keflex 500 mg Capsule] 500 mg PO Q6H 7 Days capsule Naproxen [Naprosyn 250 Nmg Tablet] 1 tab PO BID #14 tablet Promethazine HCl [Phenergan 25 mg Tablet] 25 mg PO Q6H PRN #10 tablet PRN Reason: Sulfamethoxazole/Trimethoprim [Bactrim Ds Tablet] 1 each PO BID #20 tablet Forms: Smoking Cessation Education, Return to Work Referrals: [facility] [Provider Group] - 06/28/18
[2018-06-25 20:44] VITALS: BP 119/71
== END 2018-06-25 20:47 | disposition home or self-care (01) ==
LOC: ER 18:57
DX: S83.91XA Sprain of unspecified site of right knee, initial encounter (principal); L03.115 Cellulitis of right lower limb; L40.9 Psoriasis, unspecified; M25.561 Pain in right knee; X58.XXXA Exposure to other specified factors, initial encounter; F17.200 Nicotine dependence, unspecified, uncomplicated
CPT/HCPCS: 99283; L1830; S0119

== ENCOUNTER 2018-11-25 20:30 | Emergency (ER) | payer SELFPAY ==
[2018-11-25 20:35] VITALS: BP 117/75
[2018-11-25] MEDS ORDERED: DOXYCYCLINE HYCLATE 100 MG TABLET PO ONE (21:10)
--- NOTE | 2018-11-25 21:13 | ER Document Report ---
HPI - HPI Patient complains to provider of: tick bite Time Seen by Provider: 11/25/18 21:10 Onset: Other - 2 days ago Onset/Duration: Persistent Pain Level: Denies Context: Patient states that he removed a tick from his neck 2 days ago. Patient states that immediately had a swollen nodular area with the tick had been attached. Patient denies any fever or headache symptoms. Patient denies any rash. Associated Symptoms: Other - Nodular lesion after tick bite. denies: Fever Exacerbated by: Denies Relieved by: Denies Similar symptoms previously: No Recently seen / treated by doctor: No - ROS ROS below otherwise negative: Yes Systems Reviewed and Negative: Yes All other systems reviewed and negative - CONSTITUTIONAL Constitutional: DENIES: Fever, Chills - EENT EENT: DENIES: Sore Throat - NEURO Neurology: DENIES: Headache - GASTROINTESTINAL Gastrointestinal: DENIES: Nausea, Patient vomiting - REPRODUCTIVE Reproductive: DENIES: : - MUSCULOSKELETAL Musculoskeletal: DENIES: Back Pain, Neck Pain - DERM Skin Color: Normal Notes: Insect bite Past Medical History - General Information source: Patient - Social History Smoking Status: Current Every Day Smoker Smoking Education Provided: Yes Frequency of alcohol use: None Drug Abuse: None Occupation: [employer] with: Family Family History: Arthritis, CAD, Hyperlipidemia, Hypertension, Malignancy - Past Medical History Cardiac Medical History: Reports: Hx Hypercholesterolemia Renal/ Medical History: Denies: Hx Peritoneal Dialysis GI Medical History: Reports: Hx Gastroesophageal Reflux Disease Musculoskeletal Medical History: Reports Hx Musculoskeletal Trauma Skin Medical History: Reports Hx Eczema, Denies Hx MRSA, Reports Hx Psoriasis Psychiatric Medical History: Reports: Hx Anxiety, Hx Bipolar Disorder, Hx Depression Traumatic Medical History: Reports: Hx Fractures - wrist Past Surgical History: Reports: Hx Appendectomy, Hx Cholecystectomy - 2018 - Immunizations Immunizations up to date: Yes Hx Diphtheria, Pertussis, Tetanus Vaccination: Yes - 2013 Vertical Provider Document - CONSTITUTIONAL Agree With Documented VS: Yes Exam Limitations: No Limitations General Appearance: WD/WN, No Apparent Distress - INFECTION CONTROL TRAVEL OUTSIDE OF THE [place] IN LAST 30 DAYS: No - HEENT HEENT: Atraumatic, Normocephalic - NECK Neck: Normal Inspection, Supple. negative: Lymphadenopathy-Left, Lymphadenopathy-Right - RESPIRATORY Respiratory: Breath Sounds Normal, No Respiratory Distress - CARDIOVASCULAR Cardiovascular: Regular Rate, Regular Rhythm - BACK Back: Normal Inspection - MUSCULOSKELETAL/EXTREMETIES Musculoskeletal/Extremeties: MAEW - NEURO Level of Consciousness: Awake, Alert, Appropriate Motor/Sensory: No Motor Deficit - DERM Integumentary: Warm, Dry. negative: Abscess Notes: Patient with small nodular lesion to the left lateral side of neck, no surrou nding erythema, no rash, no fluctuance or induration. Course - Re-evaluation Re-evalutation: 11/25/18 21:12 Patient with insect bite to left lateral side of neck, no concern for abscess. No annular rash worrisome for erythema migrans. Patient reports tick removal soon after noticing tick bite. Will give prophylactic doxycycline given prevalence of tickborne illnesses in this area. - Vital Signs Vital signs: Temp Pulse Resp BP Pulse Ox 98.4 F 72 18 117/75 95 11/25/18 20:34 11/25/18 20:34 11/25/18 20:34 11/25/18 20:34 11/25/18 20:34 Discharge - Discharge Clinical Impression: Tick bite Qualifiers: Encounter type: initial encounter Qualified Code(s): W57.XXXA - Bitten or stung by nonvenomous insect and other nonvenomous arthropods, initial encounter Condition: Stable Disposition: HOME, SELF-CARE Instructions: Doxycycline ([facility]), Tick Bites ([facility]) Additional Instructions: Return immediately for any new or worsening symptoms Followup with your primary care provider, call tomorrow to make a followup appointment Forms: Smoking Cessation Education Referrals: [facility] [Provider Group] - Follow up as needed
== END 2018-11-25 21:20 | disposition home or self-care (01) ==
LOC: ER 20:30
DX: S10.96XA Insect bite of unspecified part of neck, initial encounter (principal); W57.XXXA Bitten or stung by nonvenomous insect and other nonvenomous arthropods, initial encounter; F17.200 Nicotine dependence, unspecified, uncomplicated
CPT/HCPCS: 99281

== ENCOUNTER 2019-06-04 16:07 | Emergency (ER) | payer SELFPAY ==
[2019-06-04] MEDS ORDERED: ASPIRIN 81 MG TABLET, CHEWABLE PO ONE ×2 (16:34→21:24)
--- NOTE | 2019-06-04 16:34 | ER Document Report ---
ED Medical Screen (RME) - General Chief Complaint: Chest Pain Stated Complaint: CHEST PAIN Time Seen by Provider: 06/04/19 16:31 Mode of Arrival: Ambulatory Information source: Patient Notes: 39-year-old male presented to ED for complaint of chest pain that started about 730 this morning. He states the pain is on the right side of his chest goes down his right arm and up his neck. He states he does not have any history of high blood pressure cholesterol or any cardiac problems he states he does not know of anybody in his immediate family that is had a heart attack. He is alert oriented respirations regular nonlabored speaking in full sentences. Smokes a pack a day, denies use of drugs or alcohol. He states he did take to 81 mg this morning but he will give 4 more now as well as cardiac work-up. I have greeted and performed a rapid initial assessment of this patient. A comprehensive ED assessment and evaluation of the patient, analysis of test results and completion of medical decision making process will be conducted by an additional ED providers. TRAVEL OUTSIDE OF THE [place] IN LAST 30 DAYS: No - Related Data Allergies/Adverse Reactions: No Known Allergies Allergy (Verified 06/25/18 19:01) Past Medical History - Past Medical History Cardiac Medical History: Reports: Hx Hypercholesterolemia Renal/ Medical History: Denies: Hx Peritoneal Dialysis GI Medical History: Reports: Hx Gastroesophageal Reflux Disease Musculoskeltal Medical History: Reports Hx Musculoskeletal Trauma Skin Medical History: Reports Hx Eczema, Denies Hx MRSA, Reports Hx Psoriasis Psychiatric Medical History: Reports: Hx Anxiety, Hx Bipolar Disorder, Hx Depression Traumatic Medical History: Reports: Hx Fractures - wrist Past Surgical History: Reports: Hx Appendectomy, Hx Cholecystectomy - 2017 - Immunizations Immunizations up to date: Yes Hx Diphtheria, Pertussis, Tetanus Vaccination: Yes - 2013 Physical Exam - Vital signs Vitals: Temp Pulse Resp BP Pulse Ox 97.7 F 62 18 142/79 H 99 06/04/19 16:06/04/19 16:06/04/19 16:06/04/19 16:06/04/19 16: Course - Vital Signs Vital signs: Temp Pulse Resp BP Pulse Ox 97.7 F 62 18 142/79 H 99 06/04/19 16:06/04/19 16:06/04/19 16:06/04/19 16:26 06/04/19 16:26
--- NOTE | 2019-06-04 17:12 | RADIOLOGY REPORT (SQ) ---
EXAM DESCRIPTION: CHEST 2 VIEWS COMPLETED DATE/TIME: 06/04/2019 4:44 pm REASON FOR STUDY: Chest pain COMPARISON: 08/10/2017. EXAM PARAMETERS: NUMBER OF VIEWS: two views TECHNIQUE: Digital Frontal and Lateral radiographic views of the chest acquired. RADIATION DOSE: NA LIMITATIONS: none FINDINGS: LUNGS AND PLEURA: No opacities, masses or pneumothorax. No pleural effusion. MEDIASTINUM AND HILAR STRUCTURES: No masses or contour abnormalities. HEART AND VASCULAR STRUCTURES: Heart normal size. No evidence for failure. BONES: No acute findings. HARDWARE: None in the chest. OTHER: No other significant finding. IMPRESSION: NO ACUTE RADIOGRAPHIC FINDING IN THE CHEST. TECHNICAL DOCUMENTATION: JOB ID: [id number] 2010 [employer]- All Rights Reserved Reading location - IP/workstation name: [email or web address]
[2019-06-04 17:13] LABS: ABSOLUTE BASOPHILS # (AUTO) 0.1 10^3/uL (0.0-0.2); ABSOLUTE EOSINOPHILS # (AUTO) 0.3 10^3/uL (0.0-0.6); ABSOLUTE LYMPHOCYTES (AUTO) 2.3 10^3/uL (0.5-4.7); ABSOLUTE MONOCYTES (AUTO) 0.7 10^3/uL (0.1-1.4); ABSOLUTE NEUT (AUTO) 2.5 10^3/uL (1.7-8.2); EOSINOPHILS % (AUTO) 5.9 % (0-6); HEMOGLOBIN 15.8 g/dL (13.5-17.0); LYMPHOCYTES % (AUTO) 39.6 % (13-45); MEAN CORPUSCULAR HEMOGLOBIN 31.6 pg (27.0-33.4); MEAN CORPUSCULAR HGB CONC 35.1 g/dL (32.0-36.0); MEAN CORPUSCULAR VOLUME 90 fl (80-97); MONOCYTES % (AUTO) 11.4 % (3-13); PLATELET COUNT 196 10^3/uL (150-450); RED BLOOD COUNT 4.99 10^6/uL (4.35-5.55); RED CELL DISTRIBUTION WIDTH 13.5 % (11.5-14.0); SEGMENTED NEUTROPHILS % (AUTO) 42.1 % (42-78); TOTAL CELLS COUNTED % (AUTO) 100 %; WHITE BLOOD COUNT 5.9 10^3/uL (4.0-10.5)
[2019-06-04 17:28] LABS: ALBUMIN 4.3 g/dL (3.5-5.0); ALKALINE PHOSPHATASE 66 U/L (38-126); ANION GAP 12 (5-19); ASPARTATE AMINO TRANSFERASE 27 U/L (17-59); BILIRUBIN,DIRECT 0.2 mg/dL (0.0-0.4); BILIRUBIN,TOTAL 0.4 mg/dL (0.2-1.3); BLOOD UREA NITROGEN 11 mg/dL (7-20); CALCIUM 9.3 mg/dL (8.4-10.2); CARBON DIOXIDE 23 mmol/L (22-30); CHLORIDE 106 mmol/L (98-107); GLUCOSE 95 mg/dL (75-110); POTASSIUM 3.8 mmol/L (3.6-5.0); TOTAL PROTEIN 7.4 g/dL (6.3-8.2)
[2019-06-04 17:43] LABS: TROPONIN I 0.063 ng/mL
--- NOTE | 2019-06-04 18:05 | ER Document Report ---
ED General - General Chief Complaint: Chest Pain Stated Complaint: CHEST PAIN Time Seen by Provider: 06/04/19 16:31 Mode of Arrival: Ambulatory TRAVEL OUTSIDE OF THE [place] IN LAST 30 DAYS: No - HPI Notes: 39-year-old male presenting with a chief complaint of intermittent chest pain x24 hours. Patient is a pack per day cigarette smoker with no other obvious coronary risk factors and no prior history of heart disease who has experienced tightness in the central chest area radiating to his right chest area and up into his neck on 3 or more occasions in the past 24 hours. This is not been provoked by exercise eating or changes in position. It is nonpleuritic. There is no associated diaphoresis nausea vomiting or dyspnea. Patient took some baby aspirin and has not tried any other type of treatment. He is currently free of pain. The longest thing the pain is lasted has been about 30 minutes. Family history is negative for coronary disease. Patient has no known history of hypertension hyperlipidemia or diabetes. He has no known history of thromboembolic disease. He denies any abuse of cocaine. HEART Score: HISTORY 2 ECG 0 AGE 0 RISK FACTORS 1 TROPONIN 0 TOTAL: 3 If HEART score is = 3 AND both tronponin measurments are normal, the 30 day ris k of a major adverse cardiac event (all-cause mortality, myocardia infarction or need for coronary revscularization) is < 1% (Sensitivity 100%, NPV 100%). PERC SCORE (HADCLOTS) H no hormone administration A Age less than 50 D NO DVT/PE previously C no hemoptysis L no leg swelling unilaterally O O2 sat greater than 95% T no tachycardia S no surgery/Trauma recently - Related Data Allergies/Adverse Reactions: No Known Allergies Allergy (Verified 06/04/19 16:43) Past Medical History - General Information source: Patient - Social History Smoking Status: Current Every Day Smoker Chew tobacco use (# tins/day): No Frequency of alcohol use: None Drug Abuse: None Family History: Arthritis, CAD, Hyperlipidemia, Hypertension, Malignancy Patient has suicidal ideation: No Patient has homicidal ideation: No - Past Medical History Cardiac Medical History: Reports: Hx Hypercholesterolemia Renal/ Medical History: Denies: Hx Peritoneal Dialysis GI Medical History: Reports: Hx Gastroesophageal Reflux Disease Musculoskeletal Medical History: Reports Hx Musculoskeletal Trauma Skin Medical History: Reports Hx Eczema, Denies Hx MRSA, Reports Hx Psoriasis Psychiatric Medical History: Reports: Hx Anxiety, Hx Bipolar Disorder, Hx Depression Traumatic Medical History: Reports: Hx Fractures - wrist Past Surgical History: Reports: Hx Appendectomy, Hx Cholecystectomy - 2018 - Immunizations Immunizations up to date: Yes Hx Diphtheria, Pertussis, Tetanus Vaccination: Yes - 2013 Review of Systems - Review of Systems Notes: Constitutional: Negative for fever. HENT: Negative for sore throat. Eyes: Negative for visual changes. Cardiovascular: As per HPI. Respiratory: Negative for shortness of breath. Gastrointestinal: Negative for abdominal pain, vomiting or diarrhea. Genitourinary: Negative for dysuria. Musculoskeletal: Negative for back pain. Skin: Negative for rash. Neurological: Negative for headaches, weakness or numbness. 10 point ROS negative except as marked above and in HPI. Physical Exam - Vital signs Vitals: Temp Pulse Resp BP Pulse Ox 97.7 F 62 18 142/79 H 99 06/04/19 16:26 06/04/19 16:26 06/04/19 16:26 06/04/19 16:26 06/04/19 16:26 - Notes Notes: GENERAL: Well-developed well-nourished appearing in no acute distress. SKIN: Good turgor no rashes. HEAD: Normocephalic atraumatic. EYES: PERRLA. EOMI. Conjunctivae and sclerae clear. EARS: CANALS AND TMS CLEAR. NOSE: CLEAR. MOUTH: Moist mucosa. Good dentition. No stridor or edema. No drooling. NECK: Supple. No masses or thyromegaly. No adenopathy. Carotids 2+ without bruits. No JVD. BACK: Symmetrical without tenderness. CHEST: Respirations unlabored. Breath sounds clear and symmetrical. HEART: Regular rhythm. No murmur gallop or rub. ABDOMEN: Soft nontender without masses, organomegaly or rebound. Bowel sounds normally active. No bruits. GENITALIA: Deferred. EXTREMITIES: No edema. No calf tenderness. Cap refill less than 1.5 seconds. Dorsalis pedis and posterior tibial pulses 3+ and symmetrical. NEUROLOGICAL: GCS 15. Alert and oriented x3. Normal gait. Fluent speech. Cranial nerves II through XII intact. Sensorimotor and cerebellar normal. Normal tone. PSYCHIATRIC: Appropriate affect. Course - Re-evaluation Re-evalutation: 06/04/19 18:06 First EKG and troponin are normal. Heart score is 3. His only risk factor is smoking. PERC negative. We will check a d-dimer and plan to get a repeat EKG and troponin at 3 hours. If he remains asymptomatic and the studies are negative anticipate outpatient work-up. 06/04/19 21:31 Second troponin was bumped up to 0.122. Patient remains free of any chest pain. His second EKG was unchanged from first. Patient has had aspirin and will place transdermal nitroglycerin. We going to draw coags and start him on some IV heparin. [facility] in [place]. He has been accepted for transfer. - Vital Signs Vital signs: Temp Pulse Resp BP Pulse Ox 97.7 F 62 19 122/78 97 06/04/19 16:26 06/04/19 16:26 06/04/19 19:01 06/04/19 19:01 06/04/19 19:01 - Laboratory Result Diagrams: 06/04/19 17:03 06/04/19 17:03 Laboratory results interpreted by me: 06/04/19 17:03 D-Dimer 1.25 H - EKG Interpretation by Me Additional EKG results interpreted by me: 06/04/19 18:08 Twelve-lead EKG from 1618 hrs. is reviewed contemporaneously by me showing normal sinus rhythm rate of 62 and QRS axis of 69 with normal intervals and no ST-T wave changes. Discharge - Discharge Clinical Impression: Acute non-ST elevation myocardial infarction (NSTEMI) Condition: Good Disposition: [facility]
--- NOTE | 2019-06-04 20:30 | EKG REPORT ---
SEVERITY:- NORMAL ECG - SINUS RHYTHM : Confirmed by: Jose Taveras MD 04-Jun-2019 20:29:59
--- NOTE | 2019-06-04 20:30 | EKG REPORT ---
SEVERITY:- NORMAL ECG - SINUS RHYTHM : Confirmed by: Jose Taveras MD 04-Jun-2019 20:29:43
[2019-06-04] MEDS ORDERED: NITROGLYCERIN 2% OINTMENT 1 GM PACKET TP ONE (21:25)
[2019-06-04 22:23] VITALS: BP 138/93
[2019-06-04] MEDS ORDERED: ONDANSETRON HCL INJ/PF 4 MG/2 ML SDV IV ONE (22:40)
[2019-06-04] MEDS ORDERED: FENTANYL CITRATE INJ/PF 100 MCG/2 ML AMPUL IV ONE (22:40)
[2019-06-04] MEDS ORDERED: CLOPIDOGREL BISULFATE 300 MG TABLET PO ONE (22:41)
[2019-06-04] MEDS ORDERED: HEPARIN SOD (PORCINE) 1,000 UNIT/ML 10 ML VIAL IV ONE (22:43)
[2019-06-04] MEDS ORDERED: HEPARIN SODIUM,PORCINE/D5W 25,000 UNIT/250 ML RTUINJ IV PRN (22:43)
[2019-06-05] MEDS ORDERED: HEPARIN SOD (PORCINE) 1,000 UNIT/ML 10 ML VIAL IV PRN (01:44)
--- NOTE | 2019-06-05 09:40 | EKG REPORT ---
SEVERITY:- NORMAL ECG - SINUS RHYTHM : Confirmed by: Jose Taveras MD 05-Jun-2019 09:39:27
== END 2019-06-04 22:45 | disposition short-term general hospital (02) ==
LOC: ER 16:07
DX: I21.4 Non-ST elevation (NSTEMI) myocardial infarction (principal); R07.89 Other chest pain; F17.210 Nicotine dependence, cigarettes, uncomplicated
CPT/HCPCS: 93005; 36415; 85025; 80053; 84484; 85379; 83880; 71046; 93010; J3490; 99285

== ENCOUNTER 2019-12-09 21:43 | Emergency (ER) | payer SELFPAY | END 2019-12-09 22:20 | disposition left against medical advice (07) | LOC: ER 21:43 | DX: Z53.21 Procedure and treatment not carried out due to patient leaving prior to being seen by health care provider (principal) ==